=== PATIENT | female | born 1955 ===

== ENCOUNTER 2019-09-25 13:49 | Emergency (ER) | payer MEDICAID, OTHER ==
[~2019-09-25] VITALS: Ht 152.4 cm; Wt 129.4 kg
--- NOTE | 2019-09-25 14:04 | NUR ---
BIB [facility] AFTER MECHANICAL GLF. PT MISSED CURB AND FELL ONTO LEFT SIDE. DENIES LOC. PT STATES LEFT KNEE AND LEFT PINKIE ARE SORE. PT CONNECTED TO MONITORING. CALL LIGHT IN REACH.
--- NOTE | 2019-09-25 15:39 | NUR ---
ALL RESULTS ARE BACK AT THIS TIME. CHART UP FOR RECHECK.
--- NOTE | 2019-09-25 16:19 | NUR ---
NEW ORDER RECEIVED FOR CT OF LEFT LOWER EXTREMITIY
--- NOTE | 2019-09-25 16:46 | NUR ---
ALL RESULTS ARE BACK AT THIS TIME. CHART UP FOR RECHECK.
[2019-09-25 16:49] VITALS: BP 154/57
--- NOTE | 2019-09-25 18:05 | NUR ---
PT TRANSFERRED TO WITHOUT ASSISTANCE. SON TO DRIVE PT HOME. PT HAS EQUIPTMENT AT HOME FOR ASSISTANCE TO AMBULATE WHEN NEEDED. SON FEELS COMFORTABLE TO TAKE PT HOME AT THIS TIME.
== END 2019-09-25 18:08 | disposition home or self-care (01) ==
LOC: ED 18:00
DX: S63.522A Sprain of radiocarpal joint of left wrist, initial encounter (principal); S00.83XA Contusion of other part of head, initial encounter; S80.02XA Contusion of left knee, initial encounter; S09.90XA Unspecified injury of head, initial encounter; F17.200 Nicotine dependence, unspecified, uncomplicated; W01.0XXA Fall on same level from slipping, tripping and stumbling without subsequent striking against object, initial encounter; Y93.89 Activity, other specified; Y92.488 Other paved roadways as the place of occurrence of the external cause; Y99.8 Other external cause status
CPT/HCPCS: 70450; 72110; 72125; 99285

== ENCOUNTER 2020-08-18 06:25 | Day surgery (SDC) | payer MEDICAID ==
[2020-08-15 14:16] LABS: ALANINE AMINOTRANSFERASE 26 U/L (12-78); ALBUMIN 2.6 g/dL (3.4-5.0); ANION GAP 12 mmol/L (5-15); CALCIUM 8.9 mg/dL (8.5-10.1); CHLORIDE 122 mmol/L (98-107)
[2020-08-15 14:18] LABS: ALKALINE PHOSPHATASE 251 U/L (45-117); BILIRUBIN,TOTAL 2.3 mg/dL (0.2-1.0); TOTAL PROTEIN 8.4 g/dL (6.4-8.2)
[~2020-08-18] VITALS: Ht 152.4 cm; Wt 126.2 kg
[~2020-08-18 06:25] MED LIST: AMLO-150 PO; AMOXICILLIN PO; CHOLECALCIFEROL PO; CLARITHROMYCIN PO; LACTULOSE PO; LOSARTAN PO; MULT1TAB78 PO; MULTIVITAMIN PO; PANT40TA6 PO
[2020-08-18 07:30] VITALS: BP 118/68
[2020-08-18] MEDS ORDERED: CHLORHEXIDINE 15 ML UDC ONE (07:37)
[2020-08-18] MEDS ORDERED: CHLORHEXIDINE 15 ML UDC MM ONE (08:00)
[2020-08-18] MEDS ORDERED: LACTATED RINGERS 1,000 ML IV SCH (08:00)
[2020-08-18] MEDS ORDERED: PHENYLEPHRINE 10 MG/ML ONE (08:13)
[2020-08-18] MEDS ORDERED: PROPOFOL 10 MG/ML, 50ML ONE (08:13)
[2020-08-18] MEDS ORDERED: SUCR1TAB33 PO (10:13)
[2020-08-18] MEDS ORDERED: OMEP20TA62 PO (10:13)
== END 2020-08-18 11:40 | disposition home or self-care (01) ==
LOC: OUT 06:25
PROVIDERS: ATTEND Internal Medicine Gastroenterology
DX: K74.69 Other cirrhosis of liver (principal); I85.10 Secondary esophageal varices without bleeding; K75.81 Nonalcoholic steatohepatitis (NASH); K29.50 Unspecified chronic gastritis without bleeding; I12.9 Hypertensive chronic kidney disease with stage 1 through stage 4 chronic kidney disease, or unspecified chronic kidney disease; N18.9 Chronic kidney disease, unspecified; J44.9 Chronic obstructive pulmonary disease, unspecified; G47.33 Obstructive sleep apnea (adult) (pediatric); E66.01 Morbid (severe) obesity due to excess calories; Z68.43 Body mass index [BMI] 50.0-59.9, adult; Z20.822 Contact with and (suspected) exposure to COVID-19; Z79.899 Other long term (current) drug therapy; Z87.891 Personal history of nicotine dependence; Z88.5 Allergy status to narcotic agent; Z90.49 Acquired absence of other specified parts of digestive tract
CPT/HCPCS: 36415; 43239; 43244; 80053; 88305; 93005; J2370; J2704; J7120; U0003